=== PATIENT | female | born 1960 | race Caucasian/White ===

== ENCOUNTER 2019-11-14 15:58 | Inpatient (IN) | payer SELFPAY ==
[~2019-11-14] VITALS: Ht 170.2 cm; Wt 46.5 kg
[2019-11-14 16:06] VITALS: BP 122/54
[2019-11-14] MEDS ORDERED: Omnipaque-300 100ml vial INJ PRN (16:30)
[2019-11-14 17:06] LABS: BASOPHILS % (AUTO) 0.6 % (0.0-2.0); EOSINOPHILS % (AUTO) 0.2 % (0.0-3.0); HEMATOCRIT 41.2 % (37.0-47.0); HEMOGLOBIN 13.2 G/DL (12.0-16.0); LYMPHOCYTES % (AUTO) 15.5 % (20.0-45.0); MEAN CORPUSCULAR VOLUME 89 FL (80-99); MONOCYTES % (AUTO) 6.1 % (1.0-10.0); NEUTROPHILS % (AUTO) 77.7 % (45.0-75.0); PLATELET COUNT 295 K/UL (150-450); RED BLOOD COUNT 4.62 M/UL (4.20-5.40); RED CELL DISTRIBUTION WIDTH 13.2 % (11.6-14.8); WHITE BLOOD COUNT 11.7 K/UL (4.8-10.8)
[2019-11-14 17:15] LABS: ANION GAP 11 mmol/L (5-15); BLOOD UREA NITROGEN 20 mg/dL (7-18); CALCIUM 10.1 MG/DL (8.5-10.1); CARBON DIOXIDE 27 MMOL/L (21-32); CHLORIDE 104 MMOL/L (98-107); CREATININE 0.7 MG/DL (0.55-1.30); POTASSIUM 3.4 MMOL/L (3.5-5.1); SODIUM 142 MMOL/L (136-145)
[2019-11-14 17:20] LABS: ALANINE AMINOTRANSFERASE 30 U/L (12-78); ALBUMIN 3.6 G/DL (3.4-5.0); ALKALINE PHOSPHATASE 111 U/L (46-116); ASPARTATE AMINO TRANSFERASE 22 U/L (15-37); BILIRUBIN,TOTAL 0.6 MG/DL (0.2-1.0)
--- NOTE | 2019-11-14 18:14 | Diagnostic Imaging Report ---
History: ABD PAIN Exam: CT ABDOMEN + PELVIS With Contrast Technique more: CTDI is 3.5 mGy and DLP is 188.9 mGy-cm. Technique more: One or more of the following dose reduction techniques were used: automated exposure control, adjustment of the mA and/or kV according to patient size, use of iterative reconstruction technique. Comparison: None available FINDINGS: The lung bases are clear. Moderate to large distention of the stomach containing air-fluid level without duodenal dilation. Wall thickening versus underdistention at the antrum. Considerations would include peptic ulcer disease, infiltrative process, neoplasm, gastric outlet obstruction among others and requires further workup. 4 x 4.7 x 4 cm lesion left lobe of the liver most consistent with cavernous hemangioma. The other abdominal solid organs, gallbladder and abdominal aorta appear within limits. No bowel dilation or free air. The appendix is not identified, no secondary signs. The ovaries are not well distinguished from adjacent bowel. The uterus and bladder appear within limits. No free fluid. IMPRESSION: Moderate to large distention of the stomach containing air-fluid level without duodenal dilation. Wall thickening versus underdistention at the antrum. Considerations would include peptic ulcer disease, infiltrative process, neoplasm, gastric outlet obstruction among others and requires further workup. 4 x 4.7 x 4 cm lesion left lobe of the liver most consistent with cavernous hemangioma.
[2019-11-14 18:39] LABS: APPEARANCE,URINE CLEAR; BILIRUBIN, URINE NEGATIVE (NEGATIVE); COLOR,URINE PALE YELLOW; GLUCOSE, URINE (UA) NEGATIVE (NEGATIVE); KETONES,URINE 4+ (NEGATIVE); LEUKOCYTE ESTERASE ,URINE 1+ (NEGATIVE); NITRITE,URINE NEGATIVE (NEGATIVE); PH,URINE 6.5 (4.5-8.0); PROTEIN,URINE 1+ (NEGATIVE); UROBILINOGEN,URINE NORMAL MG/DL (0.0-1.0)
--- NOTE | 2019-11-14 19:05 | Emergency Room Report ---
History of Present Illness General Chief Complaint: Abdominal Pain Source: Patient, EMS Present Illness HPI The patient is a homeless female. She is brought in by EMS. She is a very poor historian. However, she states that she is becoming emaciated because she is unable to eat anything. She states she just cannot get food through her stomach. She is unable to tell me how long this has been going on. She states "a while." She denies recent illness. She denies cough or congestion. She has fever chills. She has had nausea and vomiting. She denies alcohol and drug use. Allergies: Coded Allergies: No Known Allergies (Unverified , 11/14/19) COVID-19 Screening Contact w/high risk pt: No Experienced COVID-19 symptoms?: No COVID-19 Testing performed TREATMENT COUNSELOR: No Patient History Past Medical History: none, see triage record Social History: Denies: smoking, alcohol use, drug use Reviewed Nursing Documentation: PMH: Agreed; PSxH: Agreed Nursing Documentation-PMH Past Medical History: Deferred Review of Systems All Other Systems: negative except mentioned in HPI Physical Exam Vital Signs Date Time Temp Pulse Resp B/P (MAP) Pulse Ox O2 Delivery O2 Flow Rate FiO2 11/14/19 15:55 98.2 81 16 122/54 (76) 99 Room Air Sp02 EP Interpretation: reviewed, normal General Appearance: no apparent distress, alert, GCS 15, non-toxic, cachetic, other - Disheveled appearance. Poor personal hygiene. Head: normocephalic, atraumatic Eyes: bilateral eye normal inspection ENT: hearing grossly normal, normal pharynx, no angioedema, normal voice Neck: normal inspection, full range of motion, supple/symm/no masses Respiratory: chest non-tender, lungs clear, normal breath sounds, no respiratory distress, no retraction, no accessory muscle use, speaking full sentences Cardiovascular #1: regular rate, rhythm, no edema Gastrointestinal: normal bowel sounds, soft, non-distended, no guarding, no rebound, tenderness - TTP over the epigastrium/upper abdomen. Rectal: deferred Musculoskeletal: back normal, normal range of motion, non-tender Neurologic: alert, motor strength/tone normal, oriented x3, sensory intact, responsive, speech normal Psychiatric: judgement/insight normal, memory normal, mood/affect normal, no suicidal/homicidal ideation Skin: normal color Medical Decision Making Diagnostic Impression: Primary Impression: Gastric out let obstruction ER Course The patient had complained of pain in the abdomen and the patient was tender to palpation on examination. Therefore, I obtained a CT of the abdomen pelvis. This showed large distention of the stomach containing air-fluid level without duodenal dilation. The differential of this includes peptic ulcer disease, infiltrative process, neoplasm and gastric outlet obstruction. I suspect that this is a neoplasm, given the patient's history and physical exam. Regardless, the patient will be admitted for further evaluation and treatment. Laboratory Tests Test 11/14/19 16:40 11/14/19 18:25 White Blood Count 11.7 K/UL (4.8-10.8) H Red Blood Count 4.62 M/UL (4.20-5.40) Hemoglobin 13.2 G/DL (12.0-16.0) Hematocrit 41.2 % (37.0-47.0) Mean Corpuscular Volume 89 FL (80-99) Mean Corpuscular Hemoglobin 28.5 PG (27.0-31.0) Mean Corpuscular Hemoglobin Concent 32.0 G/DL (32.0-36.0) Red Cell Distribution Width 13.2 % (11.6-14.8) Platelet Count 295 K/UL (150-450) Mean Platelet Volume 7.1 FL (6.5-10.1) Neutrophils (%) (Auto) 77.7 % (45.0-75.0) H Lymphocytes (%) (Auto) 15.5 % (20.0-45.0) L Monocytes (%) (Auto) 6.1 % (1.0-10.0) Eosinophils (%) (Auto) 0.2 % (0.0-3.0) Basophils (%) (Auto) 0.6 % (0.0-2.0) Sodium Level 142 MMOL/L (136-145) Potassium Level 3.4 MMOL/L (3.5-5.1) L Chloride Level 104 MMOL/L (98-107) Carbon Dioxide Level 27 MMOL/L (21-32) Anion Gap 11 mmol/L (5-15) Blood Urea Nitrogen 20 mg/dL (7-18) H Creatinine 0.7 MG/DL (0.55-1.30) Estimated Glomerular Filtration Rate > 60 mL/min (>60) Glucose Level 109 MG/DL (74-106) H Calcium Level 10.1 MG/DL (8.5-10.1) Total Bilirubin 0.6 MG/DL (0.2-1.0) Aspartate Amino Transferase (AST) 22 U/L (15-37) Alanine Aminotransferase (ALT) 30 U/L (12-78) Alkaline Phosphatase 111 U/L (46-116) Total Protein 7.3 G/DL (6.4-8.2) Albumin 3.6 G/DL (3.4-5.0) Globulin 3.7 g/dL Albumin/Globulin Ratio 1.0 (1.0-2.7) Lipase 69 U/L (73-393) L Serum Alcohol < 3 mg/dL Urine Color Pale yellow Urine Appearance Clear Urine pH 6.5 (4.5-8.0) Urine Specific [place] 1.015 (1.005-1.035) Urine Protein 1+ (NEGATIVE) H Urine Glucose (UA) Negative (NEGATIVE) Urine Ketones 4+ (NEGATIVE) H Urine Blood 2+ (NEGATIVE) H Urine Nitrite Negative (NEGATIVE) Urine Bilirubin Negative (NEGATIVE) Urine Urobilinogen Normal MG/DL (0.0-1.0) Urine Leukocyte Esterase 1+ (NEGATIVE) H Urine RBC 5-10 /HPF (0 - 2) H Urine WBC 2-4 /HPF (0 - 2) Urine Squamous Epithelial Cells Occasional /LPF Urine Bacteria Occasional /HPF (NONE) Urine Mucus Occasional /LPF Urine Opiates Screen Negative (NEGATIVE) Urine Barbiturates Screen Negative (NEGATIVE) Phencyclidine (PCP) Screen Negative (NEGATIVE) Urine Amphetamines Screen Positive (NEGATIVE) H Urine Benzodiazepines Screen Negative (NEGATIVE) Urine Cocaine Screen Negative (NEGATIVE) Urine Marijuana (THC) Screen Negative (NEGATIVE) CT/MRI/US Diagnostic Results CT/MRI/US Diagnostic Results : Imaging Test Ordered: CT abd/pelvis Impression IMPRESSION: Moderate to large distention of the stomach containing air-fluid level without duodenal dilation. Wall thickening versus underdistention at the antrum. Considerations would include peptic ulcer disease, infiltrative process, neoplasm, gastric outlet obstruction among others and requires further workup. 4 x 4.7 x 4 cm lesion left lobe of the liver most consistent with cavernous hemangioma. Last Vital Signs Date Time Temp Pulse Resp B/P (MAP) Pulse Ox O2 Delivery O2 Flow Rate FiO2 11/14/19 16:06 98.2 16 122/54 99 Room Air 11/14/19 16:06 81 Disposition: ADMITTED INPATIENT Condition: Serious Scripts Unable to Obtain Active Prescriptions or Reported Meds Referrals: NOT CHOSEN IPA/,REFERRING (PCP) Carmen Palomo DO Nov 14, 2019 19:05
[2019-11-14 19:10] VITALS: BP 132/65
[2019-11-14 20:57] VITALS: BP 165/96
[2019-11-14] MEDS ORDERED: Gastrograffin 30ml ORAL PRN (21:45)
[2019-11-14] MEDS ORDERED: Barium EZ Gas II granules MC PRN (21:45)
[2019-11-14] MEDS ORDERED: traMADol 50mg tab ORAL PRN (21:45)
[2019-11-14] MEDS ORDERED: Barium EZ HD MC PRN (21:45)
[2019-11-14] MEDS ORDERED: Varibar Thin Liquid powder 148gm MC PRN (21:45)
[2019-11-14] MEDS: Heparin 5000 units/ml inj SUBQ SCH (22:19)
[2019-11-15] VITALS: BP 152/89
[2019-11-15 04:00] VITALS: BP 131/95
[2019-11-15 08:00] VITALS: BP 124/78
--- NOTE | 2019-11-15 09:00 | History and Physical Report ---
DATE OF ADMISSION: 11/14/2019 NOTE: INCOMPLETE DICTATION CHIEF COMPLAINT: Acute renal failure and hyperkalemia. INCOMPLETE DICTATION Javier Dunn M.D. DR: TONE JOB#: [id number] CC:
[2019-11-15] MEDS: Pantoprazole Inj IVP SCH (09:38)
[2019-11-15] MEDS: Heparin 5000 units/ml inj SUBQ SCH ×2 (09:40→20:25)
[2019-11-15 12:00] VITALS: BP 138/90
--- NOTE | 2019-11-15 13:25 | Consultation ---
History of Present Illness General Date patient seen: Nov 15, 2019 Reason for Hospitalization: Abdominal Pain Present Illness HPI 59F homeless agitated poor historian presented with abd pain, states she has not had po intake for many days. Had CT which noted dilated stomach with possible gastric outlet obstruction. surgery called to evaluate. admitted for care. patient non complaint. poor historian. wants food and does not want to listen to rational for what is going on. no flatus. no bm Allergies: Coded Allergies: No Known Allergies (Unverified , 11/14/19) COVID-19 Screening Contact w/high risk pt: No Experienced COVID-19 symptoms?: No Medication History Unable to Obtain Active Prescriptions or Reported Meds Patient History History Provided By: Patient, Medical Record, PMD Healthcare decision maker N Resuscitation status Advanced Directive on File Past Medical/Surgical History Past Medical/Surgical History: (1) Gastric out let obstruction Review of Systems Review of Symptoms General ROS: no weight loss or fever Psychological ROS: no depression or mood changes, no memory loss Ophthalmic ROS: no visual changes or eye irritation ENT ROS: no nasal congestion, hearing loss, dizziness Allergy and Immunology ROS: no allergic symptoms or urticaria Hematological and Lymphatic ROS: no swollen glands, unusual bleeding or bruising Endocrine ROS: no polyuria, polydipsia, weight changes, temperature intolerance Respiratory ROS: no cough, shortness of breath, or wheezing Cardiovascular ROS: no chest pain or dyspnea on exertion Gastrointestinal ROS: denies abdominal pain, bright red blood in stool. Musculoskeletal ROS: no myalgias or arthralgias Neurological ROS: no TIA or stroke symptoms Dermatological ROS: no new or changing skin lesions, rashes or pruritis Physical Exam Physical Exam General appearance: alert, cooperative, no distress, appears stated age Head: Normocephalic, without obvious abnormality, atraumatic Eyes: conjunctivae/corneas clear. PERRL, EOM's intact. Fundi benign Throat: Lips, mucosa, and tongue normal. Teeth and gums normal Neck: supple, symmetrical, trachea midline, no adenopathy, thyroid: not enlarged, symmetric, no tenderness/mass/nodules, no carotid bruit and no JVD Lungs: clear to auscultation bilaterally Heart: regular rate and rhythm, S1, S2 normal, no murmur, click, rub or gallop Abdomen: soft, non-tender. Bowel sounds normal. No masses, no organomegaly Extremities: extremities normal, atraumatic, no cyanosis or edema Pulses: 2+ and symmetric Skin: Skin color, texture, turgor normal. No rashes or lesions Neurologic: Grossly normal Last 24 Hour Vital Signs Date Time Temp Pulse Resp B/P (MAP) Pulse Ox O2 Delivery O2 Flow Rate FiO2 11/15/19 09:00 Room Air 11/15/19 08:00 98.6 77 16 124/78 (93) 100 11/15/19 04:00 97.8 81 18 131/95 (107) 99 11/15/19 00:00 98.2 76 18 152/89 (110) 100 11/14/19 21:10 Room Air 11/14/19 20:57 97.9 76 18 165/96 (119) 100 11/14/19 20:55 98.2 77 16 145/91 99 Room Air 11/14/19 19:10 98.2 72 16 132/65 99 Room Air 11/14/19 16:06 98.2 16 122/54 99 Room Air 11/14/19 16:06 81 16 Room Air 11/14/19 15:55 98.2 81 16 122/54 (76) 99 Room Air Intake and Output 11/14/19 11/15/19 19:00 07:00 Intake Total 0 ml 480 ml Balance 0 ml 480 ml Intake Oral 0 ml 480 ml # Voids 3 Laboratory Tests Test 11/14/19 16:40 11/14/19 18:25 White Blood Count 11.7 K/UL (4.8-10.8) H Red Blood Count 4.62 M/UL (4.20-5.40) Hemoglobin 13.2 G/DL (12.0-16.0) Hematocrit 41.2 % (37.0-47.0) Mean Corpuscular Volume 89 FL (80-99) Mean Corpuscular Hemoglobin 28.5 PG (27.0-31.0) Mean Corpuscular Hemoglobin Concent 32.0 G/DL (32.0-36.0) Red Cell Distribution Width 13.2 % (11.6-14.8) Platelet Count 295 K/UL (150-450) Mean Platelet Volume 7.1 FL (6.5-10.1) Neutrophils (%) (Auto) 77.7 % (45.0-75.0) H Lymphocytes (%) (Auto) 15.5 % (20.0-45.0) L Monocytes (%) (Auto) 6.1 % (1.0-10.0) Eosinophils (%) (Auto) 0.2 % (0.0-3.0) Basophils (%) (Auto) 0.6 % (0.0-2.0) Sodium Level 142 MMOL/L (136-145) Potassium Level 3.4 MMOL/L (3.5-5.1) L Chloride Level 104 MMOL/L (98-107) Carbon Dioxide Level 27 MMOL/L (21-32) Anion Gap 11 mmol/L (5-15) Blood Urea Nitrogen 20 mg/dL (7-18) H Creatinine 0.7 MG/DL (0.55-1.30) Estimat Glomerular Filtration Rate > 60 mL/min (>60) Glucose Level 109 MG/DL (74-106) H Calcium Level 10.1 MG/DL (8.5-10.1) Total Bilirubin 0.6 MG/DL (0.2-1.0) Aspartate Amino Transf (AST/SGOT) 22 U/L (15-37) Alanine Aminotransferase (ALT/SGPT) 30 U/L (12-78) Alkaline Phosphatase 111 U/L (46-116) Total Protein 7.3 G/DL (6.4-8.2) Albumin 3.6 G/DL (3.4-5.0) Globulin 3.7 g/dL Albumin/Globulin Ratio 1.0 (1.0-2.7) Lipase 69 U/L (73-393) L Serum Alcohol < 3 mg/dL Urine Color Pale yellow Urine Appearance Clear Urine pH 6.5 (4.5-8.0) Urine Specific [place] 1.015 (1.005-1.035) Urine Protein 1+ (NEGATIVE) H Urine Glucose (UA) Negative (NEGATIVE) Urine Ketones 4+ (NEGATIVE) H Urine Blood 2+ (NEGATIVE) H Urine Nitrite Negative (NEGATIVE) Urine Bilirubin Negative (NEGATIVE) Urine Urobilinogen Normal MG/DL (0.0-1.0) Urine Leukocyte Esterase 1+ (NEGATIVE) H Urine RBC 5-10 /HPF (0 - 2) H Urine WBC 2-4 /HPF (0 - 2) Urine Squamous Epithelial Cells Occasional /LPF Urine Bacteria Occasional /HPF (NONE) Urine Mucus Occasional /LPF Urine Opiates Screen Negative (NEGATIVE) Urine Barbiturates Screen Negative (NEGATIVE) Phencyclidine (PCP) Screen Negative (NEGATIVE) Urine Amphetamines Screen Positive (NEGATIVE) H Urine Benzodiazepines Screen Negative (NEGATIVE) Urine Cocaine Screen Negative (NEGATIVE) Urine Marijuana (THC) Screen Negative (NEGATIVE) Microbiology Date/Time Source Procedure Growth Status 11/14/19 20:47 Rectum Received 11/14/19 19:25 Nasopharynx SARS-CoV-2 RdRp Gene Assay - Final Complete Height (Feet): 5 Height (Inches): 7.00 Weight (Pounds): 100 Medications Current Medications Medications (Trade) Dose Ordered Sig/Teri Route PRN Reason Start Time Stop Time Status Last Admin Dose Admin Barium Sulfate (Barium EZ Gas II) 1 ea NOW PRN Radiology Procedure 11/14/19 21:45 11/17/19 21:44 Barium Sulfate (Barium EZ HD) 1 ea NOW PRN Radiology Procedure 11/14/19 21:45 11/17/19 21:44 Barium Sulfate (Varibar Thin Liquid powder) 148 gm NOW PRN Radiology Procedure 11/14/19 21:45 11/17/19 21:44 Clonidine HCl (Catapres Tab) 0.1 mg Q4H PRN ORAL For High Blood Pressure 11/14/19 22:30 02/12/20 22:29 Dextrose/ Electrolytes 1,000 ml @ 100 mls/hr Q10H IV 11/14/19 22:00 12/14/19 21:59 11/14/19 22:19 Diatrizoate Meglum/ Diatrizoate Sod (Gastrografin) 30 ml NOW PRN ORAL Radiology Procedure 11/14/19 21:45 11/17/19 21:44 Heparin Sodium (Porcine) (Heparin 5000 units/ml) 5,000 units EVERY 12 HOURS SUBQ 11/14/19 21:45 12/29/19 21:44 11/15/19 09:40 Iohexol (OMNIPAQUE-300 100ml) 100 ml NOW PRN INJ Radiology Procedure 11/14/19 16:30 11/16/19 16:29 Ondansetron HCl (Zofran) 4 mg Q6H PRN IVP Nausea & Vomiting 11/14/19 21:45 12/14/19 21:44 11/15/19 00:09 Pantoprazole (Protonix) 40 mg DAILY IVP 11/15/19 09:00 12/15/19 08:59 11/15/19 09:38 Tramadol HCl (Ultram) 50 mg Q6H PRN ORAL For Pain 11/14/19 21:45 11/21/19 21:44 Assessment/Plan Problem List: (1) Gastric out let obstruction Assessment & Plan: 59F gastric outlet obstruction vs gastroparesis npo iv fluids ng tube decompression once decompressed will need further imaging to identify etiology thank you will follow with recs The lung bases are clear. Moderate to large distention of the stomach containing air-fluid level without duodenal dilation. Wall thickening versus underdistention at the antrum. Considerations would include peptic ulcer disease, infiltrative process, neoplasm, gastric outlet obstruction among others and requires further workup. 4 x 4.7 x 4 cm lesion left lobe of the liver most consistent with cavernous hemangioma. The other abdominal solid organs, gallbladder and abdominal aorta appear within limits. No bowel dilation or free air. The appendix is not identified, no secondary signs. The ovaries are not well distinguished from adjacent bowel. The uterus and bladder appear within limits. No free fluid. IMPRESSION: Moderate to large distention of the stomach containing air-fluid level without duodenal dilation. Wall thickening versus underdistention at the antrum. Considerations would include peptic ulcer disease, infiltrative process, neoplasm, gastric outlet obstruction among others and requires further workup. 4 x 4.7 x 4 cm lesion left lobe of the liver most consistent with cavernous hemangioma. 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
--- NOTE | 2019-11-15 13:45 | History and Physical Report ---
DATE OF ADMISSION: 11/14/2019 CHIEF COMPLAINT: Nausea and vomiting. HISTORY OF PRESENT ILLNESS: The patient is a 59-year-old female, who was brought in with complaints of one week of progressive nausea and vomiting. According to the patient, she has been unable to tolerate any p.o. She has been constipated and has been losing weight. On evaluation in the emergency room, labs were significant for potassium of 3.4. White count was 12. Urine tox screen was positive for amphetamines. Urinalysis showed only [address] scan of the abdomen showed distention of the stomach with air-fluid level without duodenal dilation, wall thickening versus under distention of the antrum. The patient has been started on IV hydration and is now admitted for further evaluation and care. PAST MEDICAL HISTORY: None. PAST SURGICAL HISTORY: None. CURRENT MEDICATIONS: None. ALLERGIES: None. FAMILY HISTORY: None. SOCIAL HISTORY: Negative for tobacco, ethanol, or drugs. REVIEW OF SYSTEMS: Unremarkable, except for what was mentioned in the history and physical. PHYSICAL EXAMINATION: VITAL SIGNS: Temperature 98, pulse 81, respirations 18, and blood pressure 131/95. GENERAL: The patient is a thin female, in no apparent distress. She is disheveled. HEENT: The oropharynx is clear. HEART: Regular rate and rhythm. LUNGS: Clear. ABDOMEN: Soft, nontender, and nondistended. EXTREMITIES: Without clubbing or cyanosis. LABORATORY DATA: Labs were reviewed. ASSESSMENT: This is a 59-year-old female admitted with complaints of intractable nausea and vomiting, unclear etiology. She does have an abnormal CT. PLAN: 1. IV hydration. 2. Antiemetics. 3. Upper GI. 4. GI consultation. Javier Dunn M.D. DR: Albertina JOB#: [id number] CC:
--- NOTE | 2019-11-15 14:36 | Diagnostic Imaging Report ---
Indication: Post nasogastric tube placement Technique: Supine view of the abdomen Comparison: none Findings: Nasogastric tube in place, tip of which projects at the level gastric fundus, proximal port at the level gastric esophageal junction. Bowel gas pattern is unremarkable. No masses or unusual calcifications. Impression: Nasogastric tube tip is in the stomach, proximal port slightly high at the gastroesophageal junction. Recommend slight advancement.
[2019-11-15 16:00] VITALS: BP 131/95
[2019-11-15 20:00] VITALS: BP 139/93
--- NOTE | 2019-11-15 23:01 | General Progress Note ---
Subjective Allergies: Coded Allergies: No Known Allergies (Unverified , 11/14/19) Objective Last 24 Hour Vital Signs Date Time Temp Pulse Resp B/P (MAP) Pulse Ox O2 Delivery O2 Flow Rate FiO2 11/15/19 20:35 Room Air 11/15/19 20:00 98.7 79 18 139/93 (108) 96 11/15/19 16:00 97.8 81 18 131/95 (107) 99 11/15/19 12:00 98.5 86 18 138/90 (106) 99 11/15/19 09:00 Room Air 11/15/19 08:00 98.6 77 16 124/78 (93) 100 11/15/19 04:00 97.8 81 18 131/95 (107) 99 11/15/19 00:00 98.2 76 18 152/89 (110) 100 Intake and Output 11/14/19 11/15/19 19:00 07:00 Intake Total 0 ml 480 ml Balance 0 ml 480 ml Intake Oral 0 ml 480 ml # Voids 3 Height (Feet): 5 Height (Inches): 7.00 Weight (Pounds): 100 Assessment/Plan Assessment/Plan: GI consult Dictated Assessment - cachexia, weight loss - liver hemangioma - ? Gastric outlet obstruction Recommendations - await UGI - agree with NGT - possible EGD depending on UGI results - PPI Thank you MD Ariana Orona Payman MD Nov 15, 2019 23:01
[2019-11-16] VITALS: BP 138/87
--- NOTE | 2019-11-16 01:30 | Consultation ---
DATE OF CONSULTATION: 11/15/2019 GASTROENTEROLOGY CONSULTATION REPORT CONSULTING PHYSICIAN: Len Lane MD. CHIEF COMPLAINT: I was asked to see this patient by Dr. Javier Dunn for evaluation of vomiting and abnormal x-rays. HISTORY OF PRESENT ILLNESS: The patient is a 59-year-old homeless white woman who is somewhat agitated and a poor historian, who comes in with a 5-day history of nausea, vomiting, and gas-filled sensation. She states she has been losing weight and she is not doing well. A CT scan of the abdomen and pelvis showed a 4 to 5 cm mass in the liver consisting of a cavernous hemangioma. There is also distention of the stomach suggestive of gastric outlet obstruction. PAST MEDICAL HISTORY: Patient denies any significant history. MEDICATIONS: None. FAMILY HISTORY: Noncontributory. SOCIAL HISTORY: Patient is homeless. She does not smoke or drink alcohol. She is single and . REVIEW OF SYSTEMS: Otherwise negative. PHYSICAL EXAMINATION: GENERAL: Debilitated, thin woman, seen in her room. HEENT: Normocephalic and atraumatic. Sclerae are anicteric. Oropharynx clear. NECK: Supple. CHEST: Clear to auscultation. CARDIOVASCULAR: Revealed a regular rate. ABDOMEN: Soft and flat. EXTREMITIES: Revealed no edema. LABORATORY DATA: Noted. ASSESSMENT: This patient presents with a radiographic picture, which is suggestive of possible gastric outlet obstruction, although severe gastroparesis will be on the differential. Nonetheless, given the patient's symptoms of vomiting, evaluation will be required. An upper GI series has been done to evaluate the gastric outlet and I will wait for the results of the study. In addition, the patient has been ordered to receive an NG tube. This should help decompress the stomach. Once the above information is available, then the patient can undergo an endoscopy to further evaluate the outlet of the gastric cavity. In the meantime, proton pump inhibitors can also be given and IV fluids to maintain hydration. RECOMMENDATIONS: Per above discussion and per orders written in the chart. Thank you for asking me to participate in the care of this patient. Len Lane M.D. DR: ANDREA JOB#: [id number] CC:
[2019-11-16 04:00] VITALS: BP 121/80
[2019-11-16 08:03] VITALS: BP 121/78
[2019-11-16] MEDS: Heparin 5000 units/ml inj SUBQ SCH (08:45)
--- NOTE | 2019-11-16 10:31 | Diagnostic Imaging Report ---
Indication: Post nasogastric tube placement Technique: Supine view of the abdomen Comparison: 11/15/2019 Findings: Nasogastric tube tip projects at the level of the gastric fundus, proximal port in the distal esophagus. Bowel gas pattern is unremarkable. Impression: Somewhat high position of nasogastric tube. Slight advancement recommended. This was discussed with patient's nurse at the time of interpretation
--- NOTE | 2019-11-16 11:40 | Surgery Progress Note ---
Surgery Progress Note Subjective Additional Comments NG placed near 2 L fluid evacuated. mainly clear feels better kub noted gi contrast study ordered Objective Last 24 Hour Vital Signs Date Time Temp Pulse Resp B/P (MAP) Pulse Ox O2 Delivery O2 Flow Rate FiO2 11/16/19 08:03 98.6 77 18 121/78 (92) 98 11/16/19 08:00 Room Air 11/16/19 04:00 98.1 77 20 121/80 (94) 96 11/16/19 00:00 98.6 66 20 138/87 (104) 96 11/15/19 20:35 Room Air 11/15/19 20:00 98.7 79 18 139/93 (108) 96 11/15/19 16:00 97.8 81 18 131/95 (107) 99 11/15/19 12:00 98.5 86 18 138/90 (106) 99 I&O Intake and Output 11/15/19 11/16/19 19:00 07:00 Intake Total 250 ml Balance 250 ml Intake Oral 250 ml Cardiovascular: RSR Respiratory: clear Abdomen: soft, flat, non-tender, present bowel sounds Extremities: no edema, no tenderness, no cyanosis Plan Problems: (1) Gastric out let obstruction Assessment & Plan: 59F gastric outlet obstruction vs gastroparesis npo iv fluids ng tube decompression once decompressed will need further imaging to identify etiology thank you will follow with recs The lung bases are clear. Moderate to large distention of the stomach containing air-fluid level without duodenal dilation. Wall thickening versus underdistention at the antrum. Considerations would include peptic ulcer disease, infiltrative process, neoplasm, gastric outlet obstruction among others and requires further workup. 4 x 4.7 x 4 cm lesion left lobe of the liver most consistent with cavernous hemangioma. The other abdominal solid organs, gallbladder and abdominal aorta appear within limits. No bowel dilation or free air. The appendix is not identified, no secondary signs. The ovaries are not well distinguished from adjacent bowel. The uterus and bladder appear within limits. No free fluid. IMPRESSION: Moderate to large distention of the stomach containing air-fluid level without duodenal dilation. Wall thickening versus underdistention at the antrum. Considerations would include peptic ulcer disease, infiltrative process, neoplasm, gastric outlet obstruction among others and requires further workup. 4 x 4.7 x 4 cm lesion left lobe of the liver most consistent with cavernous hemangioma. Wilbert Lee Nov 16, 2019 11:40
[2019-11-16] MEDS: Pantoprazole Inj IVP SCH (11:45)
[2019-11-16 12:00] VITALS: BP 134/81
--- NOTE | 2019-11-16 14:57 | General Progress Note ---
Subjective ROS Limited/Unobtainable: No Constitutional: Reports: malaise, weakness HEENT: Reports: no symptoms Cardiovascular: Reports: no symptoms Respiratory: Reports: no symptoms Gastrointestinal/Abdominal: Reports: abdominal pain, nausea Genitourinary: Reports: no symptoms Neurologic/Psychiatric: Reports: anxiety Endocrine: Reports: no symptoms Hematologic/Lymphatic: Reports: no symptoms Allergies: Coded Allergies: No Known Allergies (Unverified , 11/14/19) All Systems: reviewed and negative except above Subjective ngt placed. pt pulled out. agrees to have it replaced. Objective Last 24 Hour Vital Signs Date Time Temp Pulse Resp B/P (MAP) Pulse Ox O2 Delivery O2 Flow Rate FiO2 11/16/19 12:00 97.9 71 18 134/81 (98) 98 11/16/19 08:03 98.6 77 18 121/78 (92) 98 11/16/19 08:00 Room Air 11/16/19 04:00 98.1 77 20 121/80 (94) 96 11/16/19 00:00 98.6 66 20 138/87 (104) 96 11/15/19 20:35 Room Air 11/15/19 20:00 98.7 79 18 139/93 (108) 96 11/15/19 16:00 97.8 81 18 131/95 (107) 99 Intake and Output 11/15/19 11/16/19 19:00 07:00 Intake Total 250 ml Balance 250 ml Intake Oral 250 ml Height (Feet): 5 Height (Inches): 7.00 Weight (Pounds): 100 General Appearance: WD/WN, thin Neck: supple Cardiovascular: regular rhythm Respiratory/Chest: lungs clear Abdomen: normal bowel sounds, non tender, soft, no organomegaly Edema: no edema noted Arm (L), no edema noted Arm (R), no edema noted Leg (L), no edema noted Leg (R), no edema noted Pedal (L), no edema noted Pedal (R), no edema noted Generalized Neurologic: alert Assessment/Plan Problem List: (1) Gastric out let obstruction ICD Codes: K31.1 - Adult hypertrophic pyloric stenosis SNOMED: 409594338 Status: stable Assessment/Plan: ngt ivf antiemetics upper gi egd Javier Dunn MD Nov 16, 2019 14:57
--- NOTE | 2019-11-16 16:31 | Diagnostic Imaging Report ---
Indication: Shortness of breath Technique: One view of the chest Comparison: none Findings: There is a nasogastric tube in place, tip which projects at the level gastric fundus, proximal port above the expected level gastric esophageal junction. Lungs and pleural spaces are clear. Heart size is normal. There are old healed right rib fractures. Impression: High position of nasogastric tube No acute pulmonary process
--- NOTE | 2019-11-16 18:32 | Diagnostic Imaging Report ---
Indication: Abdominal pain, gastric distention on prior CT scan Technique: Patient was given thin liquid barium via pre-existing nasogastric tube. Serial saved fluoroscopic images and spot images were obtained with the portable C-arm. Overhead films were also obtained Total fluoroscopy time 44.2 seconds. Total dose area product [id number] mGym2 Number of images: 21 Comparison: CT scan. 11/14/2019 Findings: Exam is very limited due to the limitations of the available fluoroscopic equipment. The stomach is nondistended, unlike demonstrated on the CT scan. There is study flow of contrast through the pylorus and into the duodenum and subsequently into the small bowel. No mass is demonstrated. Impression:. Limited exam, as described No evidence of gastric outlet obstruction or gastric outlet mass lesion
--- NOTE | 2019-11-18 12:14 | Discharge Summary ---
Discharge Summary Discharge Summary _ DATE OF ADMISSION: 11/14/2019 DATE OF DISCHARGE: 11/16/2019 CONSULTANTS: Dr. Len Lee BRIEF HOSPITAL COURSE: Patient is a 59-year-old homeless female, who was brought in due to complaints of 1 week progressive nausea and vomiting. According to patient, she was unable to tolerate any p.o. She had been constipated and losing weight. On evaluation at emergency room, labs were significant for potassium of 3.4. White count was 12. Urine toxicology screen was positive for amphetamines. Urinalysis showed 2-4 WBC. CAT scan of the abdomen showed distention of the stomach with air- fluid level without duodenal dilatation, wall thickening versus distention of the antrum. She was started on IV hydration. She was then admitted for further evaluation and care. She underwent general surgeon and GI evaluation. Patient was ordered to have NG tube to help decompress the stomach. She was given IV hydration and proton pump inhibitors. GI series showed limited exam, with no evidence of gastric outlet obstruction or gastric outlet mass lesion. Patient pulled out NG tube. Patient became agitated and aggressive. She was demanding for food. Full treatment was not carried out as patient left AGAINST MEDICAL ADVICE. FINAL DIAGNOSES: Possible gastric outlet obstruction DISPOSITION: Patient left AMA. I have been assigned to complete a discharge summary on this account, I was not involved with the patient's management.--PEPE Martinez Jacqueline Robles NP Nov 18, 2019 12:14
== END 2019-11-16 18:30 | disposition left against medical advice (07) | DRG 382 ==
LOC: EDBD 15:58 → EMR 16:14 → 3E 19:25 → EDBEDREQ 20:22
DX: K31.1 Adult hypertrophic pyloric stenosis (principal); Z59.0 Homelessness; R63.4 Abnormal weight loss; D18.09 Hemangioma of other sites
CPT/HCPCS: 36415; 71045; 74018; 74177; 80053; 80307; 81003; 83690; 85025; 87081; 96361; 96374; 96375; 99285; G0480; J2405; J7030; U0002